=== PATIENT | male | born 1980 | race African-American/Black ===

== ENCOUNTER 2016-11-04 10:25 | Emergency (ER) | payer OTHER ==
[2016-11-04] MEDS ORDERED: Morphine Sulfate 2 MG/ML SYRINGE ONE ×2 (11:06→11:11)
--- NOTE | 2016-11-04 11:32 | RAD ---
3 VIEWS RIGHT WRIST: Date: 11/04/16 COMPARISON: None. HISTORY: Fell backwards with right wrist pain. FINDINGS: Three views of the right wrist show a moderately displaced fracture through the metaphysis of the di stal radius. No ulnar fracture is seen. Soft tissue swelling and deformity are present. IMPRESSION: Right distal radius fracture. POS: [facility]
== END 2016-11-04 12:40 | disposition home or self-care (01) ==
LOC: NAV ERS 10:25
DX: S52.501A Unspecified fracture of the lower end of right radius, initial encounter for closed fracture (principal); I10 Essential (primary) hypertension; E66.9 Obesity, unspecified; E11.9 Type 2 diabetes mellitus without complications; E78.5 Hyperlipidemia, unspecified; Z79.899 Other long term (current) drug therapy; Z79.4 Long term (current) use of insulin; Z87.891 Personal history of nicotine dependence; W18.30XA Fall on same level, unspecified, initial encounter; Y99.0 Civilian activity done for income or pay
CPT/HCPCS: 29125; 96372; J2270

== ENCOUNTER 2019-04-11 11:16 | Emergency (ER) | payer BC ==
[2019-04-11] MEDS ORDERED: Sodium Chloride 0.9% 1,000 ML ONE (11:45)
[2019-04-11] MEDS ORDERED: Ondansetron PF 4 MG/2 ML Vial ONE (11:45)
[2019-04-11 12:05] LABS: #Lymphocytes 0.7 thou/uL (1.20-3.40); #Monocytes 0.5 thou/uL (0.11-0.59); %Basophils 0.4 % (0.0-1.0); %Eosinophils 0.1 % (0.0-10.0); %Lymphocytes 8.6 % (21.0-51.0); %Monocytes 5.5 % (0.0-10.0); %Neutrophils 85.4 % (42.0-75.0); Hemoglobin 8.3 g/dL (14.0-18.0); Mean Corpuscular HGB CONC 32.8 g/dL (32.0-36.0); Mean Corpuscular Hemoglobin 28.2 pg (27.0-31.0); Mean Corpuscular Volume 86.1 fL (78.0-98.0); Mean Platelet Volume 8.4 fL (7.4-10.4); Platelet Count 184 thou/uL (130-400); RBC Distribution Width 13.9 % (11.5-14.5); Red Blood Cell (RBC) Count 2.94 mill/uL (4.70-6.10); White Blood Cell (WBC) Count 8.2 thou/uL (4.8-10.8)
--- NOTE | 2019-04-11 12:06 | RAD ---
XR Chest 1 View Portable HISTORY: Dyspnea COMPARISON: 05/29/2014 FINDINGS: The heart size is prominent likely due to projection/technique. The lungs are well expanded without focal areas of consolidation, pneumothorax or pleural effusions. There is no evidence of riley pulmonary edema. IMPRESSION: No radiographic evidence of acute cardiopulmonary process.
[2019-04-11 12:22] LABS: ALT (SGPT) 12 U/L (8-55); AST (SGOT) 20 U/L (5-34); Albumin 2.5 g/dL (3.5-5.0); Alkaline Phosphatase 152 U/L (40-110); Anion Gap 16 mmol/L (10-20); BUN (Urea Nitrogen) 30 mg/dL (8.9-20.6); Bilirubin, Total 0.3 mg/dL (0.2-1.2); Calc. Creatinine Clearance 0 mL/min (70-130); Calcium 7.3 mg/dL (7.8-10.44); Carbon Dioxide 18 mmol/L (22-29); Chloride 109 mmol/L (98-107); Estimated GFR-MDRD 23; Globulin 4.3 g/dL (2.4-3.5); Glucose 100 mg/dL (70-105); Lipase 15 U/L (8-78); Potassium 4.1 mmol/L (3.5-5.1); Protein, Total 6.8 g/dL (6.0-8.3); Sodium 139 mmol/L (136-145)
[2019-04-11 12:35] LABS: Bicarbonate (HCO3v) 20.1 mmol/L (22.0-28.0); CO2 Tension (PvCO2) 36.4 mmHg (40.0-50.0); Calcium, Ionized 1.04 mmol/L (See Comments:); Chloride 107 mmol/L (98-107); Hemoglobin - Calc 8.4 g/dL (14.0-18.0); Potassium 3.9 mmol/L (3.5-5.1); Sodium 140 mmol/L (138-145); T. Carbon Dioxide 21.3 mmol/L (22.0-28.0); vO2 Saturation-calc 99.4 % (60.0-85.0)
[2019-04-11] MEDS ORDERED: hydrALAZINE 20 MG/ML VIAL ONE (13:14)
[2019-04-11] MEDS ORDERED: Furosemide 40 MG/4 ML VIAL ONE (13:41)
== END 2019-04-11 14:28 | disposition short-term general hospital (02) ==
LOC: NAV ERS 11:16
DX: N19 Unspecified kidney failure (principal); I10 Essential (primary) hypertension; E87.70 Fluid overload, unspecified; E11.9 Type 2 diabetes mellitus without complications; E78.5 Hyperlipidemia, unspecified; E78.00 Pure hypercholesterolemia, unspecified; Z79.4 Long term (current) use of insulin; Z87.891 Personal history of nicotine dependence; Z79.899 Other long term (current) drug therapy
CPT/HCPCS: 36416; 71045; 80053; 82010; 82330; 82550; 82803; 83690; 83880; 84484; 85025; 96374; 96375; J0360; J1940; J2405; J7050

== ENCOUNTER 2022-12-14 18:20 | Emergency (ER) | payer OTHER, BC, MEDICARE ==
[2022-12-14 18:45] LABS: #Basophils 0.1 thou/uL (0.0-0.2); #Eosinphils 0.1 thou/uL (0.0-0.7); #Monocytes 0.7 thou/uL (0.11-0.59); #Neutrophils 6.8 thou/uL (1.40-6.50); %Basophils 0.7 % (0.0-1.0); %Eosinophils 1.4 % (0.0-10.0); %Lymphocytes 11.2 % (21.0-51.0); %Neutrophils 78.7 % (42.0-75.0); Hematocrit 33.7 % (42.0-52.0); Hemoglobin 10.9 g/dL (14.0-18.0); Mean Corpuscular HGB CONC 32.5 g/dL (32.0-36.0); Mean Corpuscular Hemoglobin 31.4 pg (27.0-31.0); Mean Corpuscular Volume 96.6 fl (78.0-98.0); Mean Platelet Volume 8.2 fL (7.4-10.4); Platelet Count 159 10x3/uL (130-400); RBC Distribution Width 13.4 % (11.5-14.5); Red Blood Cell (RBC) Count 3.48 mill/uL (4.70-6.10); White Blood Cell (WBC) Count 8.6 10x3/uL (4.8-10.8)
[2022-12-14 18:58] LABS: Phosphorus 6.2 mg/dL (2.3-4.7)
[2022-12-14 19:00] LABS: ALT (SGPT) 22 U/L (8-55); AST (SGOT) 23 U/L (5-34); Albumin 3.6 g/dL (3.5-5.0); Alkaline Phosphatase 82 U/L (40-110); Anion Gap 22 mmol/L (10-20); BUN (Urea Nitrogen) 55 mg/dL (8.9-20.6); Bilirubin, Total 0.7 mg/dL (0.2-1.2); Calc. Creatinine Clearance 0 mL/min (70-130); Calcium 8.7 mg/dL (7.8-10.44); Carbon Dioxide 23 mmol/L (22-29); Chloride 94 mmol/L (98-107); Estimated GFR 4; Globulin 4.5 g/dL (2.4-3.5); Glucose 158 mg/dL (70-105); Magnesium 2.5 mg/dL (1.6-2.6); Potassium 4.5 mmol/L (3.5-5.1); Protein, Total 8.1 g/dL (6.0-8.3); Sodium 134 mmol/L (136-145)
[2022-12-14] MEDS ORDERED: Clindamycin 150 MG CAP ONE (19:22)
[2022-12-14] MEDS ORDERED: LevoFLOXacin 750 MG TAB ONE (19:22)
[2022-12-14] MEDS ORDERED: Bacitracin 1 PK ONE (19:29)
== END 2022-12-14 19:51 | disposition home or self-care (01) ==
LOC: NAV ERS 18:20
DX: T25.222A Burn of second degree of left foot, initial encounter (principal); T25.221A Burn of second degree of right foot, initial encounter; I12.0 Hypertensive chronic kidney disease with stage 5 chronic kidney disease or end stage renal disease; E11.22 Type 2 diabetes mellitus with diabetic chronic kidney disease; N18.6 End stage renal disease; E11.42 Type 2 diabetes mellitus with diabetic polyneuropathy; E66.9 Obesity, unspecified; X32.XXXA Exposure to sunlight, initial encounter; Y93.01 Activity, walking, marching and hiking; Y92.34 Swimming pool (public) as the place of occurrence of the external cause; Z79.4 Long term (current) use of insulin; Z99.2 Dependence on renal dialysis; Z79.899 Other long term (current) drug therapy
CPT/HCPCS: 80053; 83605; 83735; 84100; 85025